=== PATIENT | male | born 1945 | race Caucasian/White ===

== ENCOUNTER 2023-01-11 09:31 | Outpatient (CLI) | payer MEDICARE, BC ==
[2023-01-11] MEDS ORDERED: iohexol 300mg/ml 100ml inj. ONE (09:44)
== END 2023-01-11 23:59 | disposition home or self-care (01) ==
LOC: RAD 09:31
PROVIDERS: ATTEND Nurse Practitioner Family
DX: K57.30 Diverticulosis of large intestine without perforation or abscess without bleeding (principal); R19.09 Other intra-abdominal and pelvic swelling, mass and lump; R17 Unspecified jaundice; I70.0 Atherosclerosis of aorta; E27.8 Other specified disorders of adrenal gland; M47.815 Spondylosis without myelopathy or radiculopathy, thoracolumbar region
CPT/HCPCS: 74177; J3490; Q9967